=== PATIENT | male | born 1985 | race Two or more races ===

== ENCOUNTER 2022-10-31 19:25 | Emergency (ER) | payer MEDICAID, OTHER ==
[~2022-10-31] VITALS: Ht 180.3 cm; Wt 89.1 kg
[2022-10-31 19:40] VITALS: BP 128/78
[2022-10-31 21:30] LABS: Urine Bacteria NONE SEEN /hpf (None Seen); Urine Blood Negative /uL (Negative); Urine Hyaline Cast FEW /lpf (0 - 2); Urine Specific Gravity 1.018 (1.001-1.035); Urine WBC <1 /hpf (0 - 3)
== END 2022-10-31 21:33 | disposition left against medical advice (07) ==
LOC: ER 19:25 → EDSEX 19:25 → ER 21:33
DX: R53.1 Weakness (principal); I10 Essential (primary) hypertension; E11.9 Type 2 diabetes mellitus without complications
CPT/HCPCS: 81001; 82962

== ENCOUNTER 2023-03-14 14:13 | Inpatient (IN) | payer MEDICAID ==
[~2023-03-14] VITALS: Ht 182.9 cm; Wt 86.2 kg
[2023-03-14] MEDS ORDERED: THIAMINE 100mg/ml INJ (200mg/2ml VIAL) IV ONE (14:30)
[2023-03-14] MEDS ORDERED: ONDANSETRON HCL 4 MG/2 ML VIAL IV ONE (14:30)
[2023-03-14 14:37] VITALS: PULSE 91; RESP 13; O2SAT 98
[2023-03-14 15:00] LABS: Basophils # (auto) 0.1 10 ^3/uL (0-0.2); Basophils % (auto) 1.1 % (0.0-2.0); Eosinophils # (auto) 0 10 ^3/uL (0-0.8); Eosinophils % (auto) 0.1 % (0.0-7.0); Hematocrit 35.7 % (41.0-53.0); Hemoglobin 12.1 g/dL (13.5-17.5); Lymphocytes # (auto) 2.1 10 ^3/uL (0.4-5.4); Lymphocytes % (auto) 20.2 % (10.0-50.0); Mean Corpuscular Hemoglobin 30.6 pg (28.0-32.0); Mean Corpuscular Hgb Conc. 33.8 g/dL (32.0-36.0); Mean Corpuscular Volume 90.5 fL (80.0-100.0); Monocytes # (auto) 0.5 10 ^3/uL (0-1.3); Monocytes % (auto) 5.2 % (0.0-12.0); Neutrophils # (auto) 7.6 10 ^3/uL (1.6-8.6); Neutrophils % (auto) 73.4 % (37.0-80.0); Nucleated Red Blood Cells % 0.1 %; Red Blood Cells 3.94 10^6/uL (4.5-5.90); Red Cell Distribution Width 14.7 % (11.8-14.3); White Blood Cell 10.4 10^3/uL (4.4-10.8)
[2023-03-14] MEDS ORDERED: FOLIC ACID 1 MG, MULTIPLE VITAMIN 10 ML, MAGNESIUM SULF SDV 50% 8 MEQ, THIAMINE INJ 100... INJ SCH ×5 (15:00)
[2023-03-14 15:39] LABS: Chloride 96 mmol/L (98-107); Potassium 3.4 mmol/L (3.5-5.1); Sodium 134 mmol/L (136-145)
[2023-03-14 15:42] LABS: Anion Gap 10 (5-15); Calcium 8.3 mg/dL (8.7-10.4); Carbon Dioxide 28 mmol/L (20-30)
[2023-03-14 15:47] LABS: Alkaline Phosphatase 125 U/L (46-116); Glucose 154 mg/dL (74-106); Lipase 18 U/L (12-53)
[2023-03-14 15:49] LABS: Alanine Aminotransferase 109 U/L (7-40); Albumin 4.3 g/dL (3.2-4.8); Aspartate Aminotransferase 89 U/L (13-40); Bilirubin, Total 0.6 mg/dL (0.2-1.0)
[2023-03-14 15:52] LABS: BUN/Creatinine Ratio 7.9 (10.0-20.0); Blood Alcohol 389.3 mg/dL (<10); Blood Urea Nitrogen < 5 mg/dL (9-23)
[2023-03-14] MEDS ORDERED: SODIUM CHLORIDE 0.9% 1,000 ML IV ONE ×2 (19:30→23:00)
[2023-03-14 21:44] VITALS: PULSE 85; RESP 15; O2SAT 93
[2023-03-15] MEDS ORDERED: chlordiazePOXIDE HCL 25 MG CAP PO ONE (04:00)
[2023-03-15 05:08] LABS: Urine Bacteria NONE SEEN /hpf (None Seen); Urine Blood Negative /uL (Negative); Urine Clarity Clear (Clear); Urine Color Colorless (Yellow); Urine Protein, UAD Negative (Negative); Urine Specific Gravity 1.007 (1.001-1.035); Urine Urobilinogen Normal (Negative); Urine WBC <1 /hpf (0 - 3); Urine pH 5.5 (5.0-8.0)
[2023-03-15] MEDS ORDERED: NITROGLYCERIN 0.4 MG SL TAB SL PRN (05:30)
[2023-03-15] MEDS ORDERED: HYDROcodone-ACET 5/325MG TAB PO PRN (05:30)
[2023-03-15] MEDS ORDERED: IBUPROFEN 600 MG TAB PO PRN (05:30)
[2023-03-15] MEDS ORDERED: DEXTROSE (50%) 50ML SYRG IV PRN (05:30)
[2023-03-15] MEDS ORDERED: POTASSIUM CHL 20 Meq TABLET PO ONE (05:30)
[2023-03-15] MEDS ORDERED: MORPHINE SULFATE INJ 2 MG/ml SYRG IV PRN (05:30)
[2023-03-15] MEDS ORDERED: DOCUSATE SOD 100 MG CAP PO PRN (05:30)
[2023-03-15] MEDS ORDERED: ONDANSETRON HCL 4 MG/2 ML VIAL IV PRN (05:30)
[2023-03-15] MEDS ORDERED: FOLIC ACID 1 MG, MULTIPLE VITAMIN 10 ML, MAGNESIUM SULF SDV 50% 8 MEQ, THIAMINE INJ 100... INJ SCH ×5 (05:30)
[2023-03-15 06:03] LABS: Amphetamine Screen, Urine Neg (NEGATIVE); Barbiturate Scree,Urine Neg (NEGATIVE); Benzodiazephine Screen, Urine Neg (NEGATIVE); Cannabinoid Screen, Urine Neg (NEGATIVE); Cocaine Screen, Urine Neg (NEGATIVE); Opiate Scree,Urine Neg (NEGATIVE); Phencyclidine Screen, Urine Neg (NEGATIVE)
[2023-03-15 06:27] LABS: Basophils # (auto) 0.1 10 ^3/uL (0-0.2); Basophils % (auto) 0.9 % (0.0-2.0); Eosinophils # (auto) 0 10 ^3/uL (0-0.8); Eosinophils % (auto) 0.4 % (0.0-7.0); Hematocrit 35.9 % (41.0-53.0); Hemoglobin 12.1 g/dL (13.5-17.5); Lymphocytes # (auto) 0.8 10 ^3/uL (0.4-5.4); Lymphocytes % (auto) 11.5 % (10.0-50.0); Mean Corpuscular Hemoglobin 30.9 pg (28.0-32.0); Mean Corpuscular Hgb Conc. 33.8 g/dL (32.0-36.0); Mean Corpuscular Volume 91.2 fL (80.0-100.0); Monocytes # (auto) 0.3 10 ^3/uL (0-1.3); Monocytes % (auto) 4.7 % (0.0-12.0); Neutrophils % (auto) 82.5 % (37.0-80.0); Red Blood Cells 3.93 10^6/uL (4.5-5.90); White Blood Cell 7.2 10^3/uL (4.4-10.8)
[2023-03-15 06:39] LABS: Alanine Aminotransferase 96 U/L (7-40); Alkaline Phosphatase 128 U/L (46-116); Anion Gap 8 (5-15); Aspartate Aminotransferase 65 U/L (13-40); Calcium 8.4 mg/dL (8.7-10.4); Carbon Dioxide 28 mmol/L (20-30); Chloride 104 mmol/L (98-107); Glucose 169 mg/dL (74-106); Potassium 3.6 mmol/L (3.5-5.1); Sodium 140 mmol/L (136-145)
[2023-03-15 06:40] LABS: Bilirubin, Total 0.8 mg/dL (0.2-1.0); Total Protein 6.8 g/dL (5.7-8.2)
[2023-03-15 06:43] LABS: BUN/Creatinine Ratio 7.1 (10.0-20.0); Blood Urea Nitrogen < 5 mg/dL (9-23)
[2023-03-15] MEDS: ACCU-CHEK COMFORT CURVE STRIP VI SCH ×2 (06:52→11:23)
[2023-03-15] MEDS: InsuLIN REG 1unit/0.01ml Soln (100units/ml) SC SCH ×2 (06:54→11:23)
[2023-03-15 07:30] VITALS: PULSE 99; RESP 18; O2SAT 96
[2023-03-15] MEDS: LORazepam 2MG/ML-1ML VIAL IV PRN ×2 (07:58→11:25)
[2023-03-15] MEDS ORDERED: MULTIPLE VITAMIN TAB PO SCH (10:00)
[2023-03-15] MEDS ORDERED: FOLIC ACID 1 MG TAB PO SCH (10:00)
[2023-03-15] MEDS ORDERED: THIAMINE HCL 100 MG TAB PO SCH (10:00)
[2023-03-15 12:00] VITALS: TEMP 98.5
[2023-03-15 14:00] VITALS: BP 125/82; PULSE 100; RESP 16; O2SAT 98
[2023-03-15] MEDS ORDERED: InsuLIN REG 1unit/0.01ml Soln (100units/ml) SC SCH (22:00)
== END 2023-03-15 14:52 | disposition left against medical advice (07) | DRG 770 ==
LOC: EDBD 14:13 → ER 14:13 → TELE 03-15 05:31
PROVIDERS: ADMIT Nurse Practitioner Family; ATTEND Nurse Practitioner Family
DX: F10.129 Alcohol abuse with intoxication, unspecified (principal); R56.9 Unspecified convulsions; E11.9 Type 2 diabetes mellitus without complications; I10 Essential (primary) hypertension; F41.9 Anxiety disorder, unspecified; R53.1 Weakness; R79.89 Other specified abnormal findings of blood chemistry; Z53.29 Procedure and treatment not carried out because of patient's decision for other reasons
CPT/HCPCS: 36415; 80053; 80307; 80320; 81001; 82962; 83690; 83880; 84484; 85025; G0378; J1815; J2405; J7060

== ENCOUNTER 2023-04-03 17:42 | Emergency (ER) | payer MEDICAID ==
[~2023-04-03] VITALS: Ht 180.3 cm; Wt 82.0 kg
[2023-04-03 19:40] VITALS: PULSE 92; RESP 18; O2SAT 97
[2023-04-03] MEDS ORDERED: LORazepam 2MG/ML-1ML VIAL IV ONE ×3 (20:15→23:45)
[2023-04-03] MEDS ORDERED: SODIUM CHLORIDE 0.9% 1,000 ML IVB ONE (20:30)
[2023-04-03] MEDS ORDERED: SODIUM CHLORIDE 0.9% 1,000 ML IV ONE (20:30)
[2023-04-03 20:55] LABS: Amphetamine Screen, Urine Neg (NEGATIVE); Barbiturate Scree,Urine Neg (NEGATIVE); Benzodiazephine Screen, Urine Pos (NEGATIVE); Cocaine Screen, Urine Neg (NEGATIVE)
[2023-04-03 20:56] LABS: Cannabinoid Screen, Urine Neg (NEGATIVE); Opiate Scree,Urine Neg (NEGATIVE); Phencyclidine Screen, Urine Neg (NEGATIVE)
[2023-04-03 20:57] LABS: Urine Bacteria NONE SEEN /hpf (None Seen); Urine Blood Negative /uL (Negative); Urine Clarity Clear (Clear); Urine Color Yellow (Yellow); Urine Mucus FEW (None Seen); Urine Protein, UAD 1+ (Negative); Urine Specific Gravity 1.023 (1.001-1.035); Urine WBC 1 /hpf (0 - 3)
[2023-04-03 21:30] LABS: Alanine Aminotransferase 44 U/L (7-40); Albumin 4.4 g/dL (3.2-4.8); Alkaline Phosphatase 130 U/L (46-116); Anion Gap 6 (5-15); Aspartate Aminotransferase 61 U/L (13-40); Blood Alcohol < 3.0 mg/dL (<10); Calcium 8.8 mg/dL (8.7-10.4); Carbon Dioxide 27 mmol/L (20-30); Chloride 105 mmol/L (98-107); Glucose 125 mg/dL (74-106); Magnesium 1.5 mg/dL (1.6-2.6); Potassium 3.3 mmol/L (3.5-5.1); Sodium 138 mmol/L (136-145)
[2023-04-03 21:31] LABS: Bilirubin, Total 0.9 mg/dL (0.2-1.0); Total Protein 7.7 g/dL (5.7-8.2)
[2023-04-03 21:32] LABS: INR 1.18 (0.9-1.15); Partial Thromboplastin Time 27.6 SEC (24.5-34.5); Prothrombin Time 12.3 sec (9.3-11.8)
[2023-04-03 21:39] LABS: BUN/Creatinine Ratio 6.7 (10.0-20.0); Blood Urea Nitrogen < 5 mg/dL (9-23)
[2023-04-03 22:07] LABS: Basophils # (auto) 0.1 10 ^3/uL (0-0.2); Eosinophils # (auto) 0.1 10 ^3/uL (0-0.8); Eosinophils % (auto) 1.8 % (0.0-7.0); Hematocrit 38.4 % (41.0-53.0); Lymphocytes # (auto) 1.2 10 ^3/uL (0.4-5.4); Lymphocytes % (auto) 22.1 % (10.0-50.0); Mean Corpuscular Hemoglobin 30.6 pg (28.0-32.0); Mean Corpuscular Hgb Conc. 33.8 g/dL (32.0-36.0); Mean Corpuscular Volume 90.4 fL (80.0-100.0); Monocytes # (auto) 0.6 10 ^3/uL (0-1.3); Monocytes % (auto) 10.5 % (0.0-12.0); Neutrophils # (auto) 3.5 10 ^3/uL (1.6-8.6); Neutrophils % (auto) 64.6 % (37.0-80.0); Red Blood Cells 4.25 10^6/uL (4.5-5.90); Red Cell Distribution Width 14.4 % (11.8-14.3); White Blood Cell 5.3 10^3/uL (4.4-10.8)
[2023-04-03] MEDS ORDERED: PHENobarbital SODIUM INJ 260 MG in SODIUM CHL 0.9% 100 ML IV ONE (22:15)
[2023-04-04] VITALS: BP 139/65; PULSE 93; RESP 21; O2SAT 99
[2023-04-04] MEDS ORDERED: HYDR25CA PO ×2 (01:00)
[2023-04-05] MEDS ORDERED: HYDR25CA PO (15:52)
[2023-04-05] MEDS ORDERED: KEP500T PO (15:52)
[2023-04-05] MEDS ORDERED: METF-370 PO (18:34)
[2023-04-05] MEDS ORDERED: QUET50TA PO (18:34)
== END 2023-04-04 01:00 | disposition home or self-care (01) ==
LOC: ER 17:42
DX: R56.9 Unspecified convulsions (principal); I10 Essential (primary) hypertension; E11.9 Type 2 diabetes mellitus without complications; F41.9 Anxiety disorder, unspecified; J45.909 Unspecified asthma, uncomplicated; Z98.890 Other specified postprocedural states; Z79.84 Long term (current) use of oral hypoglycemic drugs; Z79.899 Other long term (current) drug therapy; Z86.2 Personal history of diseases of the blood and blood-forming organs and certain disorders involving the immune mechanism
CPT/HCPCS: 36415; 70450; 71045; 80053; 80164; 80307; 80320; 81001; 83735; 85610; 85730; 96361; 96365; 96375; 96376; 99285; J1953; J2060; J2560; J7030; J7060

== ENCOUNTER 2023-07-07 19:45 | Inpatient (IN) | payer MEDICAID ==
[~2023-07-07] VITALS: Ht 177.8 cm; Wt 81.8 kg
[~2023-07-07 19:45] MED LIST: HYDR25CA PO; KEP500T PO; METF-370 PO; QUET50TA PO
[2023-07-07 21:02] LABS: Basophils # (auto) 0.1 10 ^3/uL (0-0.2); Basophils % (auto) 0.8 % (0.0-2.0); Eosinophils # (auto) 0 10 ^3/uL (0-0.8); Eosinophils % (auto) 0.1 % (0.0-7.0); Hematocrit 37.9 % (41.0-53.0); Hemoglobin 12.4 g/dL (13.5-17.5); Lymphocytes # (auto) 0.9 10 ^3/uL (0.4-5.4); Lymphocytes % (auto) 10.6 % (10.0-50.0); Mean Corpuscular Hemoglobin 30.4 pg (28.0-32.0); Mean Corpuscular Hgb Conc. 32.7 g/dL (32.0-36.0); Mean Corpuscular Volume 92.9 fL (80.0-100.0); Monocytes # (auto) 0.5 10 ^3/uL (0-1.3); Monocytes % (auto) 6.2 % (0.0-12.0); Neutrophils % (auto) 82.3 % (37.0-80.0); Red Blood Cells 4.08 10^6/uL (4.5-5.90); Red Cell Distribution Width 17.2 % (11.8-14.3); White Blood Cell 8.5 10^3/uL (4.4-10.8)
[2023-07-07 21:13] LABS: Chloride 106 mmol/L (98-107); Potassium 4.3 mmol/L (3.5-5.1); Sodium 141 mmol/L (136-145)
[2023-07-07 21:14] LABS: Anion Gap 18 (5-15); Calcium 8.9 mg/dL (8.5-10.1)
[2023-07-07 21:19] LABS: BUN/Creatinine Ratio 6.8 (10.0-20.0); Blood Alcohol 144.6 mg/dL (<10); Blood Urea Nitrogen 7 mg/dL (9-23); Glucose 103 mg/dL (74-106)
[2023-07-07 21:21] LABS: Acetaminophen < 2.0 UG/ML (10.0-20.0)
[2023-07-07 21:34] LABS: Carbon Dioxide 17 mmol/L (20-30)
[2023-07-07 21:35] LABS: Salicylate < 3.0 mg/dL (2.8-20.0)
[2023-07-07 23:49] LABS: Lactic Acid w/Reflex 3.9 mmol/L (0.4-2.0)
[2023-07-08] MEDS ORDERED: LORazepam 2MG/ML-1ML VIAL IV ONE (00:15)
[2023-07-08] MEDS ORDERED: THIAMINE 100mg/ml INJ (200mg/2ml VIAL) IV ONE (00:15)
[2023-07-08] MEDS ORDERED: HYDROcodone-ACET 5/325MG TAB PO PRN (00:15)
[2023-07-08] MEDS ORDERED: ONDANSETRON HCL 4 MG/2 ML VIAL IV PRN ×2 (00:15)
[2023-07-08] MEDS ORDERED: MORPHINE SULFATE INJ 2 MG/ml SYRG IV PRN (00:15)
[2023-07-08] MEDS ORDERED: LORazepam 2MG/ML-1ML VIAL IV PRN (00:15)
[2023-07-08] MEDS ORDERED: DOCUSATE SOD 100 MG CAP PO PRN (00:15)
[2023-07-08] MEDS ORDERED: SODIUM CHLORIDE 0.9% 1,000 ML IV ONE ×2 (00:15)
[2023-07-08] MEDS ORDERED: MAALOX PLUS or MAALOX 30 ML PO PRN (00:15)
[2023-07-08] MEDS ORDERED: FOLIC ACID 1 MG TAB PO ONE (00:15)
[2023-07-08] MEDS: LORazepam 2MG/ML-1ML VIAL IV SCH ×2 (05:41→08:33)
[2023-07-08 06:42] LABS: Amphetamine Screen, Urine Neg (NEGATIVE)
[2023-07-08 06:44] LABS: Barbiturate Scree,Urine Neg (NEGATIVE); Benzodiazephine Screen, Urine Neg (NEGATIVE); Cannabinoid Screen, Urine Neg (NEGATIVE); Cocaine Screen, Urine Neg (NEGATIVE); Opiate Scree,Urine Neg (NEGATIVE); Phencyclidine Screen, Urine Neg (NEGATIVE)
[2023-07-08 06:55] LABS: Anion Gap 10 (5-15); Carbon Dioxide 26 mmol/L (20-30); Chloride 105 mmol/L (98-107); Potassium 3.5 mmol/L (3.5-5.1); Sodium 141 mmol/L (136-145)
[2023-07-08 06:58] LABS: Basophils # (auto) 0.1 10 ^3/uL (0-0.2); Basophils % (auto) 1.4 % (0.0-2.0); Eosinophils # (auto) 0 10 ^3/uL (0-0.8); Eosinophils % (auto) 0.9 % (0.0-7.0); Hematocrit 34.1 % (41.0-53.0); Hemoglobin 11.4 g/dL (13.5-17.5); Lymphocytes # (auto) 1.2 10 ^3/uL (0.4-5.4); Lymphocytes % (auto) 22.9 % (10.0-50.0); Mean Corpuscular Hemoglobin 30.6 pg (28.0-32.0); Mean Corpuscular Hgb Conc. 33.4 g/dL (32.0-36.0); Mean Corpuscular Volume 91.6 fL (80.0-100.0); Monocytes # (auto) 0.5 10 ^3/uL (0-1.3); Monocytes % (auto) 8.8 % (0.0-12.0); Neutrophils # (auto) 3.6 10 ^3/uL (1.6-8.6); Red Blood Cells 3.72 10^6/uL (4.5-5.90); Red Cell Distribution Width 17.3 % (11.8-14.3); White Blood Cell 5.4 10^3/uL (4.4-10.8)
[2023-07-08 07:01] LABS: BUN/Creatinine Ratio 9.4 (10.0-20.0); Blood Urea Nitrogen 8 mg/dL (9-23); Glucose 88 mg/dL (74-106)
[2023-07-08 08:00] VITALS: PULSE 110; RESP 19; O2SAT 96
[2023-07-08 09:53] LABS: INR 1.12 (0.9-1.15); Partial Thromboplastin Time 27.6 SEC (24.5-34.5); Prothrombin Time 11.7 sec (9.3-11.8)
[2023-07-08] MEDS ORDERED: THIAMINE 100mg/ml INJ (200mg/2ml VIAL) IV SCH (10:00)
[2023-07-08] MEDS ORDERED: FOLIC ACID 1 MG TAB PO SCH (10:00)
[2023-07-08] MEDS ORDERED: MULTIPLE VITAMIN TAB PO SCH (10:00)
[2023-07-08] MEDS: chlordiazePOXIDE HCL 25 MG CAP PO SCH ×2 (10:22→17:23)
[2023-07-08] MEDS: FOLIC ACID 1 MG, MULTIPLE VITAMIN 10 ML, MAGNESIUM SULF SDV 50% 8 MEQ, THIAMINE INJ 100... INJ SCH ×10 (11:08→18:00)
[2023-07-08] MEDS: ACCU-CHEK COMFORT CURVE STRIP VI SCH ×2 (11:15→17:24)
[2023-07-08] MEDS ORDERED: levETIRAcetam 500 MG TAB PO ONE (14:00)
[2023-07-08] MEDS: QUEtiapine FUMARATE 100 MG TAB PO SCH ×2 (14:12→22:07)
[2023-07-08] MEDS: MAGNESIUM SULFATE 1GM/100ML 100 ML IV SCH ×4 (14:13→17:22)
[2023-07-08] MEDS: SODIUM CHLORIDE 0.9% 1,000 ML IV SCH (16:34)
[2023-07-08] MEDS ORDERED: MAGNESIUM SULFATE 1GM/100ML 100 ML IV SCH (19:00)
[2023-07-08 19:49] VITALS: PULSE 120; RESP 13; O2SAT 97
[2023-07-08] MEDS: LORazepam 2MG/ML-1ML VIAL IV PRN (20:05)
[2023-07-08] MEDS: levETIRAcetam 500 MG TAB PO SCH (22:07)
[2023-07-08 23:50] VITALS: BP_SYST 135; BP_DIAS 73; BP_DIAS 75; PULSE 120; RESP 20; TEMP 98.7; TEMP 98.9; O2SAT 99
[2023-07-09] VITALS (7 sets, daily range): BP systolic 111–147; BP diastolic 70–99; PULSE 96–110; RESP 18–20; TEMP 97.8–98.8; O2SAT 96–99
[2023-07-09] MEDS: chlordiazePOXIDE HCL 25 MG CAP PO SCH ×3 (00:26→21:06)
[2023-07-09] MEDS: ACCU-CHEK COMFORT CURVE STRIP VI SCH ×5 (00:33→23:49)
[2023-07-09] MEDS: SODIUM CHLORIDE 0.9% 1,000 ML IV SCH (01:35)
[2023-07-09] MEDS: ACETAMINOPHEN 325 MG TAB PO PRN ×2 (02:13→21:37)
[2023-07-09] MEDS: QUEtiapine FUMARATE 100 MG TAB PO SCH ×3 (05:00→21:06)
[2023-07-09 06:20] LABS: Basophils # (auto) 0.1 10 ^3/uL (0-0.2); Basophils % (auto) 1.2 % (0.0-2.0); Eosinophils # (auto) 0.1 10 ^3/uL (0-0.8); Hemoglobin 10.7 g/dL (13.5-17.5); Lymphocytes # (auto) 1.3 10 ^3/uL (0.4-5.4); Lymphocytes % (auto) 20.3 % (10.0-50.0); Mean Corpuscular Hemoglobin 30.9 pg (28.0-32.0); Mean Corpuscular Hgb Conc. 33.4 g/dL (32.0-36.0); Mean Corpuscular Volume 92.6 fL (80.0-100.0); Monocytes # (auto) 0.5 10 ^3/uL (0-1.3); Monocytes % (auto) 8.3 % (0.0-12.0); Neutrophils # (auto) 4.3 10 ^3/uL (1.6-8.6); Neutrophils % (auto) 68.2 % (37.0-80.0); Nucleated Red Blood Cells % 0.1 %; Red Blood Cells 3.46 10^6/uL (4.5-5.90); Red Cell Distribution Width 17.1 % (11.8-14.3); White Blood Cell 6.3 10^3/uL (4.4-10.8)
[2023-07-09 06:31] LABS: Alanine Aminotransferase 26 U/L (7-40); Albumin 3.6 g/dL (3.2-4.8); Alkaline Phosphatase 96 U/L (46-116); Anion Gap 6 (5-15); Aspartate Aminotransferase 34 U/L (13-40); Calcium 8.2 mg/dL (8.5-10.1); Carbon Dioxide 27 mmol/L (20-30); Chloride 108 mmol/L (98-107); Glucose 120 mg/dL (74-106); Potassium 3.5 mmol/L (3.5-5.1); Sodium 141 mmol/L (136-145)
[2023-07-09 06:32] LABS: Bilirubin, Total 0.8 mg/dL (0.2-1.0)
[2023-07-09 06:36] LABS: BUN/Creatinine Ratio 6.6 (10.0-20.0); Blood Urea Nitrogen < 5 mg/dL (9-23)
[2023-07-09] MEDS: levETIRAcetam 500 MG TAB PO SCH ×2 (10:26→21:06)
[2023-07-09] MEDS ORDERED: PANTOPRAZOLE 40 MG TAB PO ONE (11:45)
[2023-07-09 12:00] LABS: Magnesium 1.6 mg/dL (1.6-2.6)
[2023-07-09 12:32] LABS: Urine Bacteria NONE SEEN /hpf (None Seen); Urine Blood Negative /uL (Negative); Urine Clarity Clear (Clear); Urine Protein, UAD Negative (Negative); Urine Specific Gravity 1.008 (1.001-1.035); Urine Urobilinogen Normal (Negative); Urine WBC <1 /hpf (0 - 3)
[2023-07-09 12:33] LABS: Urine Color STRAW (Yellow)
[2023-07-09] MEDS: LORazepam 2MG/ML-1ML VIAL IV PRN (14:26)
[2023-07-09] MEDS: IBUPROFEN 400 MG TAB PO PRN (15:40)
[2023-07-09] MEDS: FOLIC ACID 1 MG, MULTIPLE VITAMIN 10 ML, MAGNESIUM SULF SDV 50% 8 MEQ, THIAMINE INJ 100... INJ SCH ×5 (18:35)
[2023-07-10] MEDS: LORazepam 2MG/ML-1ML VIAL IV PRN ×2 (01:23→09:52)
[2023-07-10 05:00] VITALS: BP 138/62; PULSE 86; RESP 20; TEMP 97.6; O2SAT 98
[2023-07-10] MEDS: ACCU-CHEK COMFORT CURVE STRIP VI SCH ×2 (05:17→12:37)
[2023-07-10] MEDS: QUEtiapine FUMARATE 100 MG TAB PO SCH ×2 (05:17→14:00)
[2023-07-10] MEDS: IBUPROFEN 400 MG TAB PO PRN (05:36)
[2023-07-10 06:34] LABS: Chloride 110 mmol/L (98-107); Potassium 3.6 mmol/L (3.5-5.1); Sodium 143 mmol/L (136-145)
[2023-07-10 06:35] LABS: Anion Gap 10 (5-15); Calcium 8.3 mg/dL (8.7-10.4); Carbon Dioxide 23 mmol/L (20-30)
[2023-07-10 06:40] LABS: BUN/Creatinine Ratio 7.7 (10.0-20.0); Blood Urea Nitrogen 5 mg/dL (9-23); Glucose 143 mg/dL (74-106)
[2023-07-10 06:41] LABS: Magnesium 1.6 mg/dL (1.6-2.6)
[2023-07-10 07:24] LABS: Basophils # (auto) 0.1 10 ^3/uL (0-0.2); Basophils % (auto) 1.8 % (0.0-2.0); Eosinophils # (auto) 0.1 10 ^3/uL (0-0.8); Eosinophils % (auto) 2.7 % (0.0-7.0); Hematocrit 32.2 % (41.0-53.0); Hemoglobin 10.6 g/dL (13.5-17.5); Lymphocytes # (auto) 1.2 10 ^3/uL (0.4-5.4); Lymphocytes % (auto) 30.7 % (10.0-50.0); Mean Corpuscular Hemoglobin 30.4 pg (28.0-32.0); Mean Corpuscular Hgb Conc. 32.8 g/dL (32.0-36.0); Mean Corpuscular Volume 92.8 fL (80.0-100.0); Monocytes # (auto) 0.4 10 ^3/uL (0-1.3); Neutrophils # (auto) 2.1 10 ^3/uL (1.6-8.6); Neutrophils % (auto) 54.8 % (37.0-80.0); Nucleated Red Blood Cells % 0.2 %; Red Blood Cells 3.47 10^6/uL (4.5-5.90); Red Cell Distribution Width 17.4 % (11.8-14.3); White Blood Cell 3.8 10^3/uL (4.4-10.8)
[2023-07-10] MEDS ORDERED: MAGNESIUM OXIDE 400 MG TAB PO ONE (08:30)
[2023-07-10 09:00] VITALS: BP 132/84; PULSE 84; RESP 20; TEMP 97.6; O2SAT 99
[2023-07-10] MEDS: levETIRAcetam 500 MG TAB PO SCH (09:37)
[2023-07-10] MEDS ORDERED: B-COMPLEX W/ C & FOLIC ACID(NEPHROVITE TAB) PO SCH (10:00)
[2023-07-10] MEDS ORDERED: chlordiazePOXIDE HCL 25 MG CAP PO SCH (10:00)
[2023-07-10] MEDS ORDERED: PANTOPRAZOLE 40 MG TAB PO SCH (10:00)
[2023-07-10 13:00] VITALS: BP 130/80; PULSE 100; RESP 20; TEMP 98.6; O2SAT 99
[2023-07-11] MEDS ORDERED: chlordiazePOXIDE HCL 25 MG CAP PO SCH (07:00)
[2023-07-14 06:06] LABS: Vitamin D-2 25-Hydroxy 1.1 ng/mL (.); Vitamin D-3 25-Hydroxy 5.9 ng/mL (.)
[2023-07-15 04:06] LABS: Vitamin B1, Whole Blood 188.2 nmol/L (66.5-200.0)
== END 2023-07-10 15:20 | disposition home or self-care (01) | DRG 52 ==
LOC: EDBD 19:45 → ER 19:45 → TELE 07-08 00:18 → TELE-CENTR 07-08 23:00 → CENTRAL 07-09 10:42
PROVIDERS: ADMIT Internal Medicine; ATTEND Emergency Medicine
DX: G92.9 Unspecified toxic encephalopathy (principal); E87.20 Acidosis, unspecified; G31.2 Degeneration of nervous system due to alcohol; F10.129 Alcohol abuse with intoxication, unspecified; F31.9 Bipolar disorder, unspecified; F10.139 Alcohol abuse with withdrawal, unspecified; I10 Essential (primary) hypertension; E11.9 Type 2 diabetes mellitus without complications; E83.42 Hypomagnesemia; F20.9 Schizophrenia, unspecified; G40.909 Epilepsy, unspecified, not intractable, without status epilepticus; F41.9 Anxiety disorder, unspecified
CPT/HCPCS: 36415; 70450; 71045; 80048; 80053; 80307; 80320; 80329; 81001; 82140; 82306; 82746; 82962; 83036; 83605; 83690; 83735; 84425; 84443; 85025; 85610; 85730; 93005; G0378; J2405

== ENCOUNTER 2023-09-23 19:08 | Emergency (ER) | payer MEDICAID ==
[~2023-09-23] VITALS: Ht 180.3 cm; Wt 81.0 kg
[2023-09-23] MEDS ORDERED: hydrOXYzine 25 MG TAB or CAP PO ONE (21:15)
[2023-09-23] MEDS: ONDANSETRON ODT 4 MG TAB PO ONE (21:43)
[2023-09-23] MEDS: levETIRAcetam 500 MG TAB PO ONE (21:43)
[2023-09-23] MEDS: PANTOPRAZOLE 40 MG TAB PO ONE (21:43)
[2023-09-23] MEDS: LORazepam 2MG/ML-1ML VIAL IM ONE (21:44)
[2023-09-23 21:45] VITALS: BP 135/82; PULSE 105; RESP 16; TEMP 98; O2SAT 98
[2023-09-23] MEDS ORDERED: PROP60CA34 PO (22:14)
[2023-09-23] MEDS ORDERED: HYDR25CA PO (22:14)
[2023-09-23] MEDS ORDERED: QUET50TA PO (22:14)
[2023-09-23] MEDS ORDERED: LEVE500T40 PO (22:14)
[2023-09-23] MEDS ORDERED: PANT40TA2 PO (22:14)
== END 2023-09-23 22:21 | disposition home or self-care (01) ==
LOC: ER 19:08
DX: F41.9 Anxiety disorder, unspecified (principal); F10.239 Alcohol dependence with withdrawal, unspecified; I10 Essential (primary) hypertension; E11.9 Type 2 diabetes mellitus without complications; Z79.899 Other long term (current) drug therapy; Y90.9 Presence of alcohol in blood, level not specified
CPT/HCPCS: 96372; 99284; J2060; Q0162

== ENCOUNTER 2024-02-24 16:51 | Emergency (ER) | payer MEDICAID ==
[~2024-02-24] VITALS: Ht 180.3 cm; Wt 89.9 kg
[~2024-02-24 16:51] MED LIST changes: +ACE3T PO; +ALPR0.5T PO; +IBUP-1455 PO; +LEVE500T40 PO; +PANT40TA2 PO; +PROP60CA34 PO
[2024-02-24 17:39] LABS: Basophils # (auto) 0.1 10 ^3/uL (0-0.2); Basophils % (auto) 0.8 % (0.0-2.0); Eosinophils # (auto) 0.1 10 ^3/uL (0-0.8); Eosinophils % (auto) 0.9 % (0.0-7.0); Hematocrit 35.8 % (41.0-53.0); Hemoglobin 12.4 g/dL (13.5-17.5); Lymphocytes % (auto) 11.5 % (10.0-50.0); Mean Corpuscular Hemoglobin 30.7 pg (28.0-32.0); Mean Corpuscular Hgb Conc. 34.6 g/dL (32.0-36.0); Mean Corpuscular Volume 88.8 fL (80.0-100.0); Monocytes % (auto) 11.6 % (0.0-12.0); Neutrophils # (auto) 6.2 10 ^3/uL (1.6-8.6); Neutrophils % (auto) 75.2 % (37.0-80.0); Nucleated Red Blood Cells % 0.1 %; Platelet Count (auto) 147 10^3/uL (140-450); Red Blood Cells 4.03 10^6/uL (4.5-5.90); Red Cell Distribution Width 13.6 % (11.8-14.3); White Blood Cell 8.3 10^3/uL (4.4-10.8)
[2024-02-24 17:53] LABS: Alanine Aminotransferase 24 U/L (7-40); Albumin 4.7 g/dL (3.2-4.8); Alkaline Phosphatase 104 U/L (46-116); Anion Gap 7 (5-15); Aspartate Aminotransferase 13 U/L (13-40); BUN/Creatinine Ratio 8.4 (10.0-20.0); Bilirubin, Total 0.3 mg/dL (0.2-1.0); Blood Urea Nitrogen 7 mg/dL (9-23); Calcium 9.9 mg/dL (8.7-10.4); Carbon Dioxide 27 mmol/L (20-30); Chloride 103 mmol/L (98-107); Glucose 135 mg/dL (74-106); Magnesium 1.4 mg/dL (1.6-2.6); Potassium 3.5 mmol/L (3.5-5.1); Sodium 137 mmol/L (136-145); Total Protein 7.3 g/dL (5.7-8.2)
[2024-02-24 18:02] LABS: Urine Bacteria None Seen /hpf (None Seen)
[2024-02-24 18:31] LABS: Urine Blood Negative /uL (Negative); Urine Clarity Clear (Clear); Urine Color Yellow (Yellow); Urine Mucus FEW (None Seen); Urine Protein, UAD TRACE (Negative); Urine Urobilinogen Normal (Negative); Urine WBC 4 /hpf (0 - 3)
[2024-02-24 19:40] LABS: Amphetamine Screen, Urine Neg (NEGATIVE); Barbiturate Scree,Urine Neg (NEGATIVE); Benzodiazephine Screen, Urine Neg (NEGATIVE); Cocaine Screen, Urine Neg (NEGATIVE); Opiate Scree,Urine Neg (NEGATIVE)
[2024-02-24 19:41] LABS: Cannabinoid Screen, Urine Neg (NEGATIVE); Phencyclidine Screen, Urine Neg (NEGATIVE)
[2024-02-24 21:29] LABS: COVID19 ANTIGEN SOFIA FIA POSITIVE (NEGATIVE)
[2024-02-24 21:30] LABS: Rapid Influenza A Negative (Negative); Rapid Influenza B Negative (Negative)
[2024-02-24] MEDS ORDERED: AZIT500T66 PO (21:35)
[2024-02-24] MEDS ORDERED: DEX4T PO (21:35)
[2024-02-24] MEDS: DexAMETHasone SOD PHOS 10MG/1ML VIAL INJ IM ONE (22:09)
[2024-02-24 22:15] VITALS: BP 125/72; PULSE 78; RESP 18; TEMP 98.8; O2SAT 98
== END 2024-02-24 22:17 | disposition home or self-care (01) ==
LOC: ER 16:51
DX: U07.1 COVID-19 (principal); I10 Essential (primary) hypertension; E11.9 Type 2 diabetes mellitus without complications; F41.9 Anxiety disorder, unspecified; F31.9 Bipolar disorder, unspecified; Z98.890 Other specified postprocedural states; Z79.899 Other long term (current) drug therapy
CPT/HCPCS: 36415; 71045; 80053; 80307; 81001; 83735; 83880; 84484; 85025; 86308; 87426; 87804; 93005; 96372; 99285; J1100

== ENCOUNTER 2025-01-01 10:01 | Emergency (ER) | payer MEDICAID ==
[~2025-01-01] VITALS: Ht 180.3 cm; Wt 92.0 kg
[~2025-01-01 10:01] MED LIST changes: +AZIT500T66 PO; +DEX4T PO
[2025-01-01] MEDS: SODIUM CHLORIDE 0.9% 1,000 ML IV ONE (10:18)
[2025-01-01 10:20] VITALS: PULSE 106; RESP 10; TEMP 98.4; O2SAT 97
[2025-01-01] MEDS: LORazepam 2MG/ML-1ML VIAL IV ONE (10:20)
[2025-01-01] MEDS: THIAMINE 100mg/ml INJ (200mg/2ml VIAL) IV ONE (10:21)
--- NOTE | 2025-01-01 10:22 | ED.PDOC ---
History of Present Illness HPI Comments 39-year-old male BIBA for EtOH withdrawal symptoms. Patient has PMHx of Seizures, but has been compliant with his medications. Patient states that today he drank Vodka and Beer last night after being sober for a year. Patients last drink was today when EMS got onto scene. Patient reports having tremors and a nxiety. A&Ox4. Chief Complaint: Withdrawal Time Seen by MD: 10:02 Primary Care Provider: UNKNOWN Reviewed Notes: Medications, Allergies Allergies: Coded Allergies: NO KNOWN ALLERGIES (Unverified , 10/31/22) Home Meds Active Scripts Chlordiazepoxide Hcl (Ni-1) (I (Librium) 10 Mg Cap, 10 MG PO DAILY for 3 Days, #3 CAP Prov:ALEX SHELL MD 01/01/25 Azithromycin (Azithromycin) 500 Mg Tab, 1 TAB PO DAILY, #5 TAB Prov:LUCINA METZ DO 02/24/24 Dexamethasone (Decadron) 4 Mg Tb, 6 TAB PO DAILY for 10 Days, #60 TAB Prov:LUCINA METZ DO 02/24/24 Alprazolam (Xanax) 0.5 Mg Tb, 1 TAB PO Q8HP PRN, #10 TAB Prov:VANIA MARTIN PAC 11/07/23 Acetaminophen W/ Codeine (Tylenol W/Cod #3) 1 Tab Tb, 1 TAB PO Q6HP PRN, #15 TAB Prov:VANIA MARTIN PAC 11/07/23 Ibuprofen Micronized (Ibuprofen) 800 Mg Tab, 800 MG PO Q8HP PRN, #20 TAB Prov:VANIA MARTIN PAC 11/07/23 Levetiracetam (Keppra) 500 Mg Tab, 1 TAB PO BID, #60 TAB 5 Refills Prov:KARO CAGE MD 09/23/23 Pantoprazole Sodium Sesquihydr (Protonix) 40 Mg Tab, 40 MG PO DAILY, #30 TAB Prov:KARO CAGE MD 09/23/23 Propranolol Hcl (Inderal La) 60 Mg Cap, 1 CAP PO DAILY, #30 CAP 3 Refills Prov:KARO CAGE MD 09/23/23 Hydroxyzine Pamoate (Vistaril) 25 Mg Cap, 1 CAP PO TID, #90 CAP 1 Refill Prov:KARO CAGE MD 09/23/23 Quetiapine Fumerate (Seroquel) 50 Mg Tab, 1 TAB PO QPM, #30 TAB 1 Refill Prov:KARO CAGE MD 09/23/23 Levetiracetam (KEPPRA TABLET) 500 Mg Tb, 500 MG PO BID, #120 TAB Prov:ED WISEMAN DO 04/05/23 Hydroxyzine Pamoate (Vistaril) 25 Mg Cap, 1 CAP PO TID, #90 CAP 0 Refills Prov:ED WISEMAN DO 04/05/23 Reported Medications Metformin Hydrochloride (Metformin Hcl) 500 Mg Tab, 1000 MG PO BID for 30 Days, MG 04/05/23 Quetiapine Fumerate (Seroquel) 50 Mg Tab, 100 MG PO TIDP PRN for ANXIETY for 30 Days, MG 04/05/23 Information Source: Patient, Emergency Med Personnel Mode of Arrival: EMS Severity: Moderate Timing: Hours Duration: Since onset Prehospital treatment: Nutritionists, IVF Past Medical History PAST MEDICAL HISTORY: Anxiety, DM, HTN, Schizophrenia, Seizures Surgical History: Denies all surgeries Family History Family History: Unknown Social History Smoker: Non-Smoker Alcohol: Heavy Drugs: Denies Drug Use Lives In: Home Constitutional: denies: chills, diaphoresis, fatigue, fever, malaise, sweats, weakness, others EENTM: denies: blurred vision, double vision, ear bleeding, ear discharge, ear drainage, ear pain, ear ringing, eye pain, eye redness, hearing loss, mouth pain, mouth swelling, nasal discharge, nose bleeding, nose congestion, nose pain, photophobia, tearing, throat pain, throat swelling, voice changes, others Respiratory: denies: cough, hemoptysis, orthopnea, SOB at rest, shortness of breath, SOB with excertion, stridor, wheezing, others Cardiovascular: denies: chest pain, dizzy spells, diaphoresis, Dyspnea on exertion, edema, irregular heart beat, left arm pain, lightheadedness, palpitations, PND, syncope, others Gastrointestinal: denies: abdomen distended, abdominal pain, blood streaked bowels, constipated, diarrhea, dysphagia, difficulty swallowing, hematemesis, melena, nausea, poor appetite, poor fluid intake, rectal bleeding, rectal pain, vomiting, others Genitourinary: denies: burning, dysuria, flank pain, frequency, hematuria, incontinence, penile discharge, penile sore, pain, testicle pain, testicle swelling, urgency, others Neurological: reports: tremors; denies: dizziness, fainting, headache, left sided numbness, left sided weakness, numbness, paresthesia, pre-existing deficit, right sided numbness, right sided weakness, seizure, speech problems, tingling, weakness, others Musculoskeletal: denies: back pain, gout, joint pain, joint swelling, muscle pain, muscle stiffness, neck pain, others Integumetry: denies: bruises, change in color, change in hair/nails, dryness, laceration, lesions, lumps, rash, wounds, others Allergic/Immunocompromised: denies: Difficulty Healing, Frequent Infections, Hives, Itching, others Hematologic/Lymphatic: denies: anemia, blood clots, easy bleeding, easy bruising, swollen glands, others Endocrine: denies: excessive hunger, excessive sweating, excessive thirst, excessive urination, flushing, intolerance to cold, intolerance to heat, unexplained weight gain, unexplained weight loss, others Psychiatric: reports: anxiety; denies: bipolar disorder, depression, hopeless, panic disorder, schizophrenia, sleepless, suicidal, others All Other Systems: Reviewed and Negative Physical Exam General Appearance: Moderate Distress, No Apparent Distress, Normal HEENT: Normal ENT Inspection, Pharynx Normal, TMs Normal Neck: Full Range of Motion, Non-Tender, Normal, Normal Inspection Respiratory: Chest Non-Tender, Lungs Clear, No Accessory Muscle Use, No Respiratory Distress, Normal Breath Sounds Cardiovascular: No Edema, No JVD, No Murmur, No Gallop, Normal Peripheral Pulses, Tachycardia Breast Exam: Deferred Gastrointestinal: No Organomegaly, Non Tender, No Pulsatile Mass, Normal Bowel Sounds, Soft Genitalia: Deferred Pelvic: Deferred Rectal: Deferred Extremities: No calf tenderness, Normal capillary refill, Normal inspection, Normal range of motion, Non-tender, No pedal edema Musculoskeletal : Apperance: Normal 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 Was a procedure done?: No EKG EKG : Pulse Rate (adult): 104 Cardiac Rhythm: ST Differential Dx Considerations may include: Alcohol withdrawal Electrolyte imbalance X-Ray, Labs, Meds, VS Vital Signs Date Time Temp Pulse Resp B/P (MAP) Pulse Ox O2 Delivery O2 Flow Rate FiO2 01/01/25 12:00 105 20 123/81 (95) 93 01/01/25 10:32 104 01/01/25 10:20 98.4 106 10 134/88 (103) 97 98.4 01/01/25 10:20 106 10 97 Room Air* 0 21 01/01/25 10:19 104 01/01/25 10:07 98.2 111 18 137/96 (110) 98 98.2 Lab Test 01/01/25 10:35 Range/Units Plasma/Serum Blood Alcohol 90.6 H <10 mg/dL Current Medications Medications (Trade) Dose Ordered Sig/Cody Route Start Time Stop Time Status Last Admin Lorazepam (Ativan Inj) 1 mg ONCE ONCE IV 01/01/25 10:15 01/01/25 10:16 DC 01/01/25 10:20 Sodium Chloride 1,000 ml @ 1,000 mls/hr Q1H ONCE IV 01/01/25 10:15 01/01/25 11:14 DC 01/01/25 10:18 Thiamine HCl 100 mg ONCE ONCE IV 01/01/25 10:15 01/01/25 10:16 DC 01/01/25 10:21 Patient alert. Alcohol abuse. He is withdrawing. Establish intravenous access. Was given fluids. Was given thiamine. Was given Ativan. Counseled patient on effects of drinking for 15 minutes. EKG reviewed does not show any acute process. Was given prescription of Librium. Explained to the patient. Continue monitoring. Was told to follow up with his primary care physician. Was told to come back if there is any problem. Time of 1ST Reevaluation: 10:32 Reevaluation 1ST: Unchanged Patient Education/Counseling: Diagnosis, Treatment, Need For Follow Up Family Education/Counseling: Diagnosis, Treatment, Need For Follow Up SEPSIS Sepsis Screen Date sepsis recognized/suspect: Jan 01, 2025 Time Sepsis recognized/suspect: 100 Recent Procedure: No On Antibiotic Therapy: No Respiratory Rate >20: No Heart Rate >90: Yes Temp<36 C (96.8 F) or >38.3 C: No SBP <90 or MAP <65 mmHG: No New Acute Mental Status Change: No Is the patient on CPAP, BIPAP,: No Physician Orders Electrocardigram (01/01/25 10:26) Chlordiazepoxide Hcl Capsule (Librium Ca (01/01/25 13:15) Vital Signs Date Time Temp Pulse Resp B/P (MAP) Pulse Ox O2 Delivery O2 Flow Rate FiO2 01/01/25 12:00 105 20 123/81 (95) 93 01/01/25 10:32 104 01/01/25 10:20 98.4 106 10 134/88 (103) 97 98.4 01/01/25 10:20 106 10 97 Room Air* 0 21 01/01/25 10:19 104 01/01/25 10:07 98.2 111 18 137/96 (110) 98 98.2 Medications Medications Dose Ordered Sig/Cody Route Start Time Stop Time Status Last Admin Dose Admin Lorazepam 1 mg ONCE ONCE IV 01/01/25 10:15 01/01/25 10:16 DC 01/01/25 10:20 Sodium Chloride 1,000 ml @ 1,000 mls/hr Q1H ONCE IV 01/01/25 10:15 01/01/25 11:14 DC 01/01/25 10:18 Thiamine HCl 100 mg ONCE ONCE IV 01/01/25 10:15 01/01/25 10:16 DC 01/01/25 10:21 Departure 1 Departure Time of Disposition: 10:30 Impression: Primary Impression: Alcohol withdrawal Qualified Codes: F10.930 - Alcohol use, unspecified with withdrawal, uncomplicated Disposition: 01 HOME / SELF CARE / HOMELESS Condition: Good e-Prescriptions Chlordiazepoxide Hcl (Ni-1) (I (Librium) 10 Mg Cap 10 MG PO DAILY for 3 Days, #3 CAP Prov: ALEX SHELL MD 01/01/25 Discharged With: Self Critical Care Note Critical Care Time?: No Stability Stability form required: No Heart Score Heart Score: Heart Score Response (Comments) Value History Slightly Suspicious 0 EKG Normal 0 Age <45 0 Risk Factors No known risk factors 0 Troponin N/A 0 Total 0 I personally scribed for ALEX SHELL MD ([email or web address]) on 01/01/25 at 10:22. Electronically submitted by Chester Hood ([email or web address]). ALEX SHELL MD Jan 01, 2025 10:22
[2025-01-01] MEDS ORDERED: CHL10C PO (12:49)
[2025-01-01 13:15] VITALS: BP 126/80; PULSE 101; RESP 20; O2SAT 95
--- NOTE | 2025-01-01 18:53 | ECG ---
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
== END 2025-01-01 13:18 | disposition home or self-care (01) ==
LOC: ER 10:01 → EDBD 10:01 → ER 13:18
DX: F10.930 Alcohol use, unspecified with withdrawal, uncomplicated (principal); E11.9 Type 2 diabetes mellitus without complications; F41.9 Anxiety disorder, unspecified; F20.9 Schizophrenia, unspecified; I10 Essential (primary) hypertension; Z79.899 Other long term (current) drug therapy; Y90.9 Presence of alcohol in blood, level not specified
CPT/HCPCS: 36415; 80320; 82947; 93005; 96361; 96374; 96375; 99285; J2060; J3411; J7030

== ENCOUNTER 2025-05-29 10:36 | Emergency (ER) | payer MEDICAID ==
[~2025-05-29] VITALS: Ht 180.3 cm; Wt 90.9 kg
[~2025-05-29 10:36] MED LIST changes: +CHL10C PO
[2025-05-29] MEDS: SODIUM CHLORIDE 0.9% 1,000 ML IV ONE ×2 (15:20→15:52)
--- NOTE | 2025-05-29 15:40 | ED.PDOC ---
Altered Mental Status HPI Comments This is a 40 year-old male who presents to the ED with a chief complaint of seizure today after ingestion of ETOH. Pt reports a Hx of epilepsy over the past 4-5 years. Patient is taking Oxcarbazepine, as prescribed. Patient reports skipping seizure medication over the past couple of days. Patient has no further complaints at this time and denies symptoms of weakness, slurred speech, fever, chills, or headache. Chief Complaint: Seizure Time Seen by MD: 14:54 Primary Care Provider: UNKNOWN Reviewed Notes: Medications, Allergies Allergies: Coded Allergies: NO KNOWN ALLERGIES (Unverified , 10/31/22) Home Meds Active Scripts Chlordiazepoxide Hcl (Ni-1) (I (Librium) 10 Mg Cap, 10 MG PO DAILY for 3 Days, #3 CAP Prov:ALEX SHELL MD 01/01/25 Azithromycin (Azithromycin) 500 Mg Tab, 1 TAB PO DAILY, #5 TAB Prov:LUCINA METZ DO 02/24/24 Dexamethasone (Decadron) 4 Mg Tb, 6 TAB PO DAILY for 10 Days, #60 TAB Prov:LUCINA METZ DO 02/24/24 Alprazolam (Xanax) 0.5 Mg Tb, 1 TAB PO Q8HP PRN, #10 TAB Prov:VANIA MARTIN PAC 11/07/23 Acetaminophen W/ Codeine (Tylenol W/Cod #3) 1 Tab Tb, 1 TAB PO Q6HP PRN, #15 TAB Prov:VANIA MARTIN PAC 11/07/23 Ibuprofen Micronized (Ibuprofen) 800 Mg Tab, 800 MG PO Q8HP PRN, #20 TAB Prov:VANIA MARTIN [facility] 11/07/23 Levetiracetam (Keppra) 500 Mg Tab, 1 TAB PO BID, #60 TAB 5 Refills Prov:KARO CAGE MD 09/23/23 Pantoprazole Sodium Sesquihydr (Protonix) 40 Mg Tab, 40 MG PO DAILY, #30 TAB Prov:KARO CAGE MD 09/23/23 Propranolol Hcl (Inderal La) 60 Mg Cap, 1 CAP PO DAILY, #30 CAP 3 Refills Prov:KARO CAGE MD 09/23/23 Hydroxyzine Pamoate (Vistaril) 25 Mg Cap, 1 CAP PO TID, #90 CAP 1 Refill Prov:KARO CAGE MD 09/23/23 Quetiapine Fumerate (Seroquel) 50 Mg Tab, 1 TAB PO QPM, #30 TAB 1 Refill Prov:KARO CAGE MD 09/23/23 Levetiracetam (KEPPRA TABLET) 500 Mg Tb, 500 MG PO BID, #120 TAB Prov:ED WISEMAN DO 04/05/23 Hydroxyzine Pamoate (Vistaril) 25 Mg Cap, 1 CAP PO TID, #90 CAP 0 Refills Prov:ED WISEMAN DO 04/05/23 Reported Medications Metformin Hydrochloride (Metformin Hcl) 500 Mg Tab, 1000 MG PO BID for 30 Days, MG 04/05/23 Quetiapine Fumerate (Seroquel) 50 Mg Tab, 100 MG PO TIDP PRN for ANXIETY for 30 Days, MG 04/05/23 Information Source: Patient, Spouse Mode of Arrival: Ambulatory Severity: Moderate Timing: Hours Past Medical History PAST MEDICAL HISTORY: Anxiety, DM, HTN, Schizophrenia, Seizures Surgical History: Denies all surgeries Family History Family History: Unknown Social History Smoker: Non-Smoker Alcohol: Heavy Drugs: Denies Drug Use Lives In: Home Constitutional: denies: chills, diaphoresis, fatigue, fever, malaise, sweats, weakness, others EENTM: denies: blurred vision, double vision, ear bleeding, ear discharge, ear drainage, ear pain, ear ringing, eye pain, eye redness, hearing loss, mouth pain, mouth swelling, nasal discharge, nose bleeding, nose congestion, nose pain, photophobia, tearing, throat pain, throat swelling, voice changes, others Respiratory: denies: cough, hemoptysis, orthopnea, SOB at rest, shortness of breath, SOB with excertion, stridor, wheezing, others Cardiovascular: denies: chest pain, dizzy spells, diaphoresis, Dyspnea on exertion, edema, irregular heart beat, left arm pain, lightheadedness, palpitations, PND, syncope, others Gastrointestinal: denies: abdomen distended, abdominal pain, blood streaked bowels, constipated, diarrhea, dysphagia, difficulty swallowing, hematemesis, melena, nausea, poor appetite, poor fluid intake, rectal bleeding, rectal pain, vomiting, others Genitourinary: denies: burning, dysuria, flank pain, frequency, hematuria, incontinence, penile discharge, penile sore, pain, testicle pain, testicle swelling, urgency, others Neurological: reports: seizure; denies: dizziness, fainting, headache, left sided numbness, left sided weakness, numbness, paresthesia, pre-existing deficit, right sided numbness, right sided weakness, speech problems, tingling, tremors, weakness, others Musculoskeletal: denies: back pain, gout, joint pain, joint swelling, muscle pain, muscle stiffness, neck pain, others Integumetry: denies: bruises, change in color, change in hair/nails, dryness, laceration, lesions, lumps, rash, wounds, others Allergic/Immunocompromised: denies: Difficulty Healing, Frequent Infections, Hives, Itching, others Hematologic/Lymphatic: denies: anemia, blood clots, easy bleeding, easy bruising, swollen glands, others Endocrine: denies: excessive hunger, excessive sweating, excessive thirst, excessive urination, flushing, intolerance to cold, intolerance to heat, unexplained weight gain, unexplained weight loss, others Psychiatric: denies: anxiety, bipolar disorder, depression, hopeless, panic disorder, schizophrenia, sleepless, suicidal, others All Other Systems: Reviewed and Negative Physical Exam General Appearance: Moderate Distress HEENT: Normal ENT Inspection, Pharynx Normal, TMs Normal Neck: Full Range of Motion, Non-Tender, Normal, Normal Inspection Respiratory: Chest Non-Tender, Lungs Clear, No Accessory Muscle Use, No Respiratory Distress, Normal Breath Sounds Cardiovascular: No Edema, No JVD, No Murmur, No Gallop, Normal Peripheral Pulses, Regular Rate/Rhythm Breast Exam: Deferred Gastrointestinal: No Organomegaly, Non Tender, No Pulsatile Mass, Normal Bowel Sounds, Soft Genitalia: Deferred Pelvic: Deferred Rectal: Deferred Extremities: No calf tenderness, Normal capillary refill, Normal inspection, No rmal range of motion, Non-tender, No pedal edema Musculoskeletal : Apperance: Normal 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 Was a procedure done?: No Differential Diagnosis (ALOC) Differential Diagnosis: Dehydration, Seizure, Closed Head Injury, ETOH Intoxication X-Ray, Labs, Meds, VS Vital Signs Date Time Temp Pulse Resp B/P (MAP) Pulse Ox O2 Delivery O2 Flow Rate FiO2 05/29/25 14:54 98.8 127 18 126/83 (97) 97 98.8 05/29/25 14:54 98.8 127 18 126/83 (97) 97 98.8 05/29/25 10:38 98.2 133 16 131/87 96 98.2 Lab Test 05/29/25 17:46 05/29/25 15:23 Range/Units Sodium Level Pending Potassium Level Pending Chloride Level Pending Carbon Dioxide Level Pending Anion Gap Pending Blood Urea Nitrogen Pending Creatinine Pending Glomerular Filtration Rate Calc Pending BUN/Creatinine Ratio Pending Serum Glucose Pending Calcium Level Pending White Blood Count 8.8 4.4-10.8 10^3/uL Red Blood Count 4.99 4.5-5.90 10^6/uL Hemoglobin 15.0 13.5-17.5 g/dL Hematocrit 45.0 41.0-53.0 % Mean Corpuscular Volume 90.1 80.0-100.0 fL Mean Corpuscular Hemoglobin 30.1 28.0-32.0 pg Mean Corpuscular Hemoglobin Concent 33.4 32.0-36.0 g/dL Red Cell Distribution Width 13.5 11.8-14.3 % Platelet Count 82 L 140-450 10^3/uL Mean Platelet Volume 10.8 6.9-10.8 fL Neutrophils (%) (Auto) 76.9 37.0-80.0 % Lymphocytes (%) (Auto) 16.5 10.0-50.0 % Monocytes (%) (Auto) 4.1 0.0-12.0 % Eosinophils (%) (Auto) 1.6 0.0-7.0 % Basophils (%) (Auto) 0.9 0.0-2.0 % Neutrophils # (Auto) 6.7 1.6-8.6 10 ^3/uL Lymphocytes # (Auto) 1.4 0.4-5.4 10 ^3/uL Monocytes # (Auto) 0.4 0-1.3 10 ^3/uL Eosinophils # (Auto) 0.1 0-0.8 10 ^3/uL Basophils # (Auto) 0.1 0-0.2 10 ^3/uL Nucleated Red Blood Cells 0.3 % Current Medications Medications (Trade) Dose Ordered Sig/Cody Route Start Time Stop Time Status Last Admin Sodium Chloride 1,000 ml @ 1,000 mls/hr Q1H ONCE IV 05/29/25 15:15 05/29/25 16:14 DC 05/29/25 15:52 Levetiracetam 100 ml @ 400 mls/hr ONCE ONCE IV 05/29/25 15:15 05/29/25 15:29 DC 05/29/25 15:52 Lorazepam (Ativan Inj) 1 mg ONCE ONCE IV 05/29/25 15:15 05/29/25 15:16 DC 05/29/25 15:52 Patient alert. Vitals stable. History of psychiatric illness. Alcohol abuse. Establish intravenous access. Was given fluids. Was given Keppra. Was given Ativan. Explained to the family that he will be admitted for seizure disorder. Continue monitoring. Time of 1ST Reevaluation: 16:17 Reevaluation 1ST: Unchanged Patient Education/Counseling: Diagnosis, Treatment Family Education/Counseling: Diagnosis, Treatment SEPSIS Sepsis Screen Date sepsis recognized/suspect: May 29, 2025 Time Sepsis recognized/suspect: 4 Recent Procedure: No On Antibiotic Therapy: No Respiratory Rate >20: No Heart Rate >90: Yes Temp<36 C (96.8 F) or >38.3 C: No SBP <90 or MAP <65 mmHG: No New Acute Mental Status Change: No Is the patient on CPAP, BIPAP,: No Physician Orders Sodium Chloride 0.9% (05/29/25 15:15) Basic Metabolic Panel (05/29/25 17:32) Vital Signs Date Time Temp Pulse Resp B/P (MAP) Pulse Ox O2 Delivery O2 Flow Rate FiO2 05/29/25 14:54 98.8 127 18 126/83 (97) 97 98.8 05/29/25 14:54 98.8 127 18 126/83 (97) 97 98.8 05/29/25 10:38 98.2 133 16 131/87 96 98.2 Laboratory Tests Test 05/29/25 15:23 White Blood Count 8.8 10^3/uL (4.4-10.8) Medications Medications Dose Ordered Sig/Cody Route Start Time Stop Time Status Last Admin Dose Admin Levetiracetam 100 ml @ 400 mls/hr ONCE ONCE IV 05/29/25 15:15 05/29/25 15:29 DC 05/29/25 15:52 Lorazepam 1 mg ONCE ONCE IV 05/29/25 15:15 05/29/25 15:16 DC 05/29/25 15:52 Sodium Chloride 1,000 ml @ 1,000 mls/hr Q1H ONCE IV 05/29/25 15:15 05/29/25 16:14 DC 05/29/25 15:52 Departure 1 Departure Time of Disposition: 17:53 Impression: Primary Impression: Alcohol abuse Additional Impressions: Alcohol withdrawal Qualified Codes: F10.930 - Alcohol use, unspecified with withdrawal, uncomplicated Seizure Disposition: ADMITTED INPATIENT Admit to: Med Surg Condition: Guarded Critical Care Note Critical Care Time?: No Stability Stability form required: No Heart Score Heart Score: Heart Score Response (Comments) Value History N/A 0 EKG N/A 0 Age N/A 0 Risk Factors N/A 0 Troponin N/A 0 Total 0 I personally scribed for ALEX SHELL MD ([email or web address]) on 05/29/25 at 15:40. Electronically submitted by Janis Foster ([facility]). ALEX HSELL MD May 29, 2025 15:40
[2025-05-29] MEDS: levETIRAcetam 1000 mg/100ml 100 ML IV ONE (15:52)
[2025-05-29] MEDS: LORazepam 2MG/ML-1ML VIAL IV ONE ×2 (15:52→23:26)
[2025-05-29 16:16] LABS: Hematocrit 45.0 % (41.0-53.0); Hemoglobin 15.0 g/dL (13.5-17.5); Mean Corpuscular Hemoglobin 30.1 pg (28.0-32.0); Mean Corpuscular Volume 90.1 fL (80.0-100.0); Nucleated Red Blood Cells % 0.3 %
[2025-05-29 18:46] LABS: Chloride 101 mmol/L (98-107); Sodium 143 mmol/L (136-145)
[2025-05-29 18:47] LABS: Anion Gap 17 (5-15); Carbon Dioxide 25 mmol/L (20-31); Potassium 3.5 mmol/L (3.5-5.1)
[2025-05-29 18:48] LABS: Calcium 8.3 mg/dL (8.7-10.4)
[2025-05-29 18:52] LABS: BUN/Creatinine Ratio 9.1 (10.0-20.0)
[2025-05-29 18:54] LABS: Blood Urea Nitrogen 6 mg/dL (9-23); Glucose 106 mg/dL (74-106)
[2025-05-29 23:35] VITALS: BP 129/74; PULSE 89; RESP 20; TEMP 98.3; O2SAT 98
== END 2025-05-30 00:10 | disposition home or self-care (01) ==
LOC: ER 10:36
DX: G40.909 Epilepsy, unspecified, not intractable, without status epilepticus (principal); I10 Essential (primary) hypertension; F41.9 Anxiety disorder, unspecified; E11.9 Type 2 diabetes mellitus without complications; F20.9 Schizophrenia, unspecified; F10.239 Alcohol dependence with withdrawal, unspecified; Z79.84 Long term (current) use of oral hypoglycemic drugs; Y90.9 Presence of alcohol in blood, level not specified
CPT/HCPCS: 36415; 80048; 82947; 85025; 96361; 96365; 96375; 96376; 99285; J1953; J2060; J7030